=== PATIENT | female | born 1965 | race Caucasian/White ===

== ENCOUNTER → 2016-12-25 | Outpatient (CLI) | payer BC, OTHER | LOC: LAB.R 16:40 | PROVIDERS: ATTEND Physician Assistant Medical | DX: N30.00 Acute cystitis without hematuria (principal) | CPT/HCPCS: 87086 ==

== ENCOUNTER 2017-01-30 15:25 | Outpatient (CLI) | payer BC ==
--- NOTE | 2017-01-31 08:50 | XRAY Report ---
EXAM: THORACIC SPINE RADIOGRAPHY EXAM DATE: 01/30/2017 04:24 PM. CLINICAL HISTORY: BACK PAIN, PERSONAL HISTORY OF FALL. Fell one week ago. COMPARISON: 07/09/2012. TECHNIQUE: 2 views. FINDINGS: Alignment: Normal. No spondylolisthesis or significant scoliosis. Bones: No fractures or bone lesions. Disks: Very mild multilevel degenerative disk disease appears similar. Soft Tissues: Normal. The visualized lungs and cardiomediastinal silhouette are normal. IMPRESSION: 1. No definite acute abnormality. 2. Very mild degenerative disk disease redemonstrated. [facility] Referring Provider Line: [phone] SITE ID: [id number]
--- NOTE | 2017-01-31 13:40 | XRAY Report ---
EXAM: RIGHT HIP RADIOGRAPHY EXAM DATE: 01/30/2017 04:24 PM. CLINICAL HISTORY: Right hip/back pain. Fell one week ago. History of right SI fusion. COMPARISON: 10/16/2015. TECHNIQUE: 2 views including AP pelvis. FINDINGS: Bones: No fracture or bone destructive process. Joints: No subluxation. Unremarkable right hip joint. Mild narrowing superior left hip joint. Intact pubic symphysis. 3 titanium implants across the right SI joint as before. Mild degenerative changes l eft SI joint. Other: Mild lumbar dextroscoliosis. IMPRESSION: 1. No fracture or bony malalignment. 2. Stable surgical fusion right SI joint. [facility] Referring Provider Line: [phone] SITE ID: [id number]
--- NOTE | 2017-01-31 15:18 | XRAY Report ---
EXAM: LUMBOSACRAL SPINE RADIOGRAPHY EXAM DATE: 01/30/2017 04:24 PM. CLINICAL HISTORY: BACK PAIN, PERSONAL HISTORY OF FALL. COMPARISONS: None. TECHNIQUE: 5 views. FINDINGS: Alignment: Mild dextroconvex scoliosis. Minimal multilevel degenerative spondylolisthesis. Bones: Five wal-wqx-fmrycga lumbar vertebral bodies are present. No fractures or bone lesions. Disks: Moderate decreased disk height at L5-S1. Mild to moderate decreased disk height at the remaini ng levels. Facets: Moderate multilevel facet arthropathy. Sacroiliac Joints: Fusion of the right sacroiliac joint. Soft Tissues: No significant abnormality. IMPRESSION: No acute fracture or subluxation in the lumbar spine. Multilevel degenerative change. [facility] Referring Provider Line: [phone] SITE ID: [id number]
--- NOTE | 2017-01-31 15:20 | XRAY Report ---
EXAM: SACROILIAC JOINT RADIOGRAPHY EXAM DATE: 01/30/2017 04:24 PM. CLINICAL HISTORY: BACK PAIN, PERSONAL HISTORY OF FALL. COMPARISON: Pelvis radiography 10/16/2015. TECHNIQUE: 3 views. 4 images are provided. FINDINGS: Bones: Status post fusion of the right sacroiliac joint as before; no evidence of hardware loosening or failure. No acute fracture. Joints: No dislocation. The left sacroiliac joint is within normal limits. Soft Tissues: No significant abnormality. IMPRESSION: No acute osseous abnormality. [facility] Referring Provider Line: [phone] SITE ID: [id number]
== END 2017-01-30 15:26 | disposition home or self-care (01) ==
LOC: DI 15:25
PROVIDERS: ATTEND Physician Assistant Medical
DX: M51.34 Other intervertebral disc degeneration, thoracic region (principal); M47.896 Other spondylosis, lumbar region; Z98.1 Arthrodesis status; M43.16 Spondylolisthesis, lumbar region
CPT/HCPCS: 72070; 72110; 72202

== ENCOUNTER 2017-07-23 15:55 | Outpatient (CLI) | payer BC ==
--- NOTE | 2017-07-25 14:56 | Mammography Report ---
SCREENING MAMMOGRAM: 07/23/2017 TECHNIQUE: Bilateral digital CC and MLO projections. COMPARISON: 09/12/2015, 03/07/2014, 09/06/2011, 01/01/2010 and 11/01/2008. FINDINGS: There are scattered fibroglandular densities. There is no dominant mass, architectural distortion, skin thickening, suspicious microcalcifications, or significant interval change. IMPRESSION: NEGATIVE. BIRADS CATEGORY 1-NEGATIVE. RECOMMENDATION: Suggest return to routine screening in 12 months. STANDARD QUALIFYING STATEMENTS: 1. This examination was reviewed with the aid of Computer-Aided Detection (CAD). 2. A negative or benign imaging report should not delay biopsy if clinically suspicious findings are present. Consider surgical consultation if warranted. More than 5% of cancers are not identified by imaging. 3. Dense breasts may obscure an underlying neoplasm. TD: 07/25/2017 14:11
== END 2017-07-23 15:56 | disposition home or self-care (01) ==
LOC: DI.N 15:55
PROVIDERS: ATTEND Physician Assistant Medical
DX: Z12.31 Encounter for screening mammogram for malignant neoplasm of breast (principal)
CPT/HCPCS: 77067

== ENCOUNTER 2019-02-25 07:00 | Outpatient (CLI) | payer BC, OTHER | END 2019-02-25 23:59 | disposition home or self-care (01) | LOC: LAB.R 07:00 | PROVIDERS: ATTEND Family Medicine | DX: J11.1 Influenza due to unidentified influenza virus with other respiratory manifestations (principal) | CPT/HCPCS: 87275; 87276 ==

== ENCOUNTER 2019-11-25 09:31 | Outpatient (CLI) | payer OTHER ==
--- NOTE | 2019-11-26 16:46 | Mammography Report ---
BILATERAL DIGITAL SCREENING MAMMOGRAM 3D/2D: 11/25/2019 CLINICAL: Routine screening. Comparison is made to exams dated: 07/23/2017 mammogram, 09/12/2015 mammogram, 03/07/2014 mammogram, 08/18 mammogram, 01/01/2010 mammogram - [facility], and 10/23/2007 mammogram - [facility]. There are scattered fibroglandular elements in both breasts. No significant masses, calcifications, or other findings are seen in either breast. There has been no significant interval change. IMPRESSION: NEGATIVE There is no mammographic evidence of malignancy. A 1 year screening mammogram is recommended. This exam was interpreted at Station ID: [id number]. NOTE: For mammograms, a report in lay terms will be sent to the patient. Approximately 15% of breast malignancies will not be visualized mammographically. In the management of a palpable breast mass, a negative mammogram must not discourage biopsy of a clinically suspicious lesion. Electronically Signed By: Pavel Yo M.D. at/[email or web address]:11/25/2019 10:42:26 ACR BI-RADS Category 1: Negative 3341F PARENCHYMAL PATTERN: (A) - The breast(s) demonstrate(s) scattered fibroglandular densities. BI-RADS CATEGORY: (1) - 1 RECOMMENDATION: (ANNUAL) - Recommend routine annual screening mammography. [id number] 1 year screening LATERALITY: (B)
== END 2019-11-25 09:32 | disposition home or self-care (01) ==
LOC: DI.N 09:31
PROVIDERS: ATTEND Nurse Practitioner
DX: Z12.31 Encounter for screening mammogram for malignant neoplasm of breast (principal)
CPT/HCPCS: 77063; 77067

== ENCOUNTER 2020-08-16 08:00 | Outpatient (CLI) | payer OTHER | END 2020-08-16 23:59 | disposition home or self-care (01) | LOC: LAB.N 08:00 | PROVIDERS: ATTEND Physician Assistant Medical | DX: N39.0 Urinary tract infection, site not specified (principal) | CPT/HCPCS: 87077; 87086; 87181 ==

== ENCOUNTER 2020-09-29 08:00 | Outpatient (CLI) | payer OTHER ==
[2020-09-29 23:38] LABS: BACTERIAL VAGINOSIS DNA NEGATIVE (NEGATIVE); CANDIDA GLABRATA DNA NEGATIVE (NEGATIVE); CANDIDA GROUP DNA POSITIVE (NEGATIVE); CANDIDA KRUSEI DNA NEGATIVE (NEGATIVE); TRICHOMONAS VAGINALIS DNA NEGATIVE (NEGATIVE)
== END 2020-09-29 23:59 | disposition home or self-care (01) ==
LOC: LAB.N 08:00
PROVIDERS: ATTEND Nurse Practitioner
DX: N89.8 Other specified noninflammatory disorders of vagina (principal)
CPT/HCPCS: 87086; 87661; 87801

== ENCOUNTER 2021-09-04 08:00 | Outpatient (CLI) | payer OTHER | END 2021-09-04 23:59 | disposition home or self-care (01) | LOC: LAB.N 08:00 | PROVIDERS: ATTEND Physician Assistant | DX: R30.0 Dysuria (principal) | CPT/HCPCS: 87086 ==

== ENCOUNTER 2022-01-03 05:08 | Outpatient (CLI) | payer OTHER | END 2022-01-03 05:09 | disposition short-term general hospital (02) | LOC: EMS 05:08 | DX: R11.2 Nausea with vomiting, unspecified (principal); R10.9 Unspecified abdominal pain; R55 Syncope and collapse; R53.1 Weakness; I10 Essential (primary) hypertension; R00.0 Tachycardia, unspecified | CPT/HCPCS: A0425; A0427 ==

== ENCOUNTER 2022-03-25 15:33 | Outpatient (CLI) | payer OTHER ==
--- NOTE | 2022-03-27 11:30 | Mammography Report ---
BILATERAL DIGITAL SCREENING MAMMOGRAM 3D/2D: 03/25/2022 CLINICAL: Routine screening. Comparison is made to exams dated: 11/25/2019 mammogram, 07/23/2017 mammogram, 09/12/2015 mammogram, 02/17 mammogram, 09/06/2011 mammogram, and 01/01/2010 mammogram - [facility]. There are scattered areas of fibroglandular density in both breasts (category b / 25%-50% glandular t issue). No significant masses, calcifications, or other findings are seen in either breast. There has been no significant interval change. IMPRESSION: NEGATIVE There is no mammographic evidence of malignancy. A 1 year screening mammogram is recommended. Based on the Tyrer Cuzick model (a risk assessment model) the patients lifetime risk is 8.3% and her 10 year risk is 2.9%. According to the ACR, ACS, and NCCN guidelines, an annual breast MRI exam terri g with mammogram is recommended if the patients lifetime risk is 20% or greater. This exam was interpreted at Station ID: [id number]. NOTE: For mammograms, a report in lay terms will be sent to the patient. Approximately 15% of breast malignancies will not be visualized mammographically. In the management of a palpable breast mass, a negative mammogram must not discourage biopsy of a clinically suspicious lesion. Electronically Signed By: Georgette gan/paul:03/26/2022 10:49:11 ACR BI-RADS Category 1: Negative 3341F PARENCHYMAL PATTERN: (A) - The breast(s) demonstrate(s) scattered fibroglandular densities. BI-RADS CATEGORY: (1) - 1 RECOMMENDATION: (ANNUAL) - Recommend routine annual screening mammography. [id number] 1 year screening LATERALITY: (B)
== END 2022-03-25 15:34 | disposition home or self-care (01) ==
LOC: DI.N 15:33
DX: Z12.31 Encounter for screening mammogram for malignant neoplasm of breast (principal)